=== PATIENT | female | born 1985 | race Caucasian/White ===

== ENCOUNTER 2019-02-05 12:36 | Inpatient (IN) | payer OTHER ==
[2019-02-05] MEDS ORDERED: BUTORPHANOL 2 MG INJ IV (14:30)
[2019-02-05] MEDS ORDERED: MISOPROSTOL 200 MCG TAB PR ×2 (14:30→22:30)
[2019-02-05] MEDS ORDERED: LIDOCAINE 1% (MPF) 30 ML INJ INJ (14:30)
[2019-02-05] MEDS ORDERED: CARBOPROST 250 MCG INJ IM ×2 (14:30→22:30)
[2019-02-05] MEDS ORDERED: OXYTOCIN 30 UNITS/LR 500 ML IV ×2 (14:30→22:30)
[2019-02-05] MEDS: LACTATED RINGER'S 1,000 ML IV ×5 (14:34→19:30)
[2019-02-05 14:51] LABS: ADD MAN DIFF? NO
[2019-02-05 14:55] LABS: BASOPHILS % 0.3 % (0.0-2.0); EOSINOPHILS % 0.2 % (0.0-7.0); HEMATOCRIT 37.9 % (37.0-47.0); HEMOGLOBIN 12.7 g/dl (12.0-16.0); LYMPHOCYTES # 1.3 10^3/ul (0.8-2.9); LYMPHOCYTES % 14.9 % (15.0-51.0); MEAN CORPUSCULAR HEMOGLOBIN 29.7 pg (29.0-33.0); MEAN CORPUSCULAR HGB CONC 33.5 g/dl (32.0-37.0); MEAN CORPUSCULAR VOLUME 88.8 fl (82.0-101.0); MEAN PLATELET VOLUME 10.7 fl (7.4-10.4); MONOCYTE # 0.4 10^3/ul (0.3-0.9); NEUTROPHIL # 6.9 10^3/ul (1.6-7.5); PLATELET COUNT 199 10^3/UL (140-415); RED BLOOD COUNT 4.27 10^6/ul (4.20-5.40); RED CELL DISTRIBUTION WIDTH 13.4 % (11.5-14.5)
[2019-02-05 14:55] LABS: WHITE BLOOD COUNT 8.8 10^3/ul (4.8-10.8)
[2019-02-05 15:15] LABS: INR 0.87; PROTIME 11.9 Sec (11.9-14.9); PT RATIO 0.9
[2019-02-05 15:16] LABS: PARTIAL THROMBOPLASTIN TIME 29.7 Sec (23.0-35.0)
[2019-02-05 15:52] LABS: RAPID PLASMA REAGIN NONREACTIVE (NR)
[2019-02-05 16:18] LABS: HEPATITIS B SURFACE ANTIGEN NEGATIVE (NEGATIVE)
[2019-02-05] MEDS: OXYTOCIN 30 UNITS/LR 500 ML IV ×3 (16:47→22:14)
[2019-02-05] MEDS ORDERED: FENTAnyl 2MCG/ML-ROPIV 0.2% 100 ML (18:35)
[2019-02-05] MEDS ORDERED: FENTAnyl 2MCG/ML-ROPIV 0.2% 100 ML BAG EPI (19:00)
[2019-02-05] MEDS ORDERED: NALOXONE (0.4 MG/ML) INJ IV (19:00)
[2019-02-05] MEDS: METHYLERGONOVINE 0.2 MG INJ IM (21:25)
[2019-02-05] MEDS: LACTATED RINGER'S 1,000 ML IV* (22:17)
[2019-02-05] MEDS ORDERED: MAGNESIUM HYDROXIDE 30ML CUP PO (22:30)
[2019-02-05] MEDS ORDERED: ACETAMINOPHEN 325 MG TAB PO (22:30)
[2019-02-05] MEDS ORDERED: METHYLERGONOVINE 0.2 MG INJ IM (22:30)
[2019-02-05] MEDS ORDERED: ONDANSETRON 4 MG INJ IV (22:30)
[2019-02-06] MEDS: IBUPROFEN 600 MG TAB PO ×3 (00:39→19:48)
[2019-02-06] MEDS: BENZOCAINE 20% 56 ML SPRAY TOP (00:39)
[2019-02-06] MEDS: DIBUCAINE 1% 30 GM OINT TOP (00:40)
[2019-02-06] MEDS: OXYTOCIN 30 UNITS/LR 500 ML IV (01:57)
[2019-02-06] MEDS: LACTATED RINGER'S 1,000 ML IV* ×3 (06:17→22:17)
[2019-02-06 06:35] LABS: ADD MAN DIFF? NO
[2019-02-06 06:41] LABS: WHITE BLOOD COUNT 12.3 10^3/ul (4.8-10.8)
[2019-02-06 06:42] LABS: BASOPHILS % 0.2 % (0.0-2.0); EOSINOPHILS % 0.3 % (0.0-7.0); HEMATOCRIT 35.8 % (37.0-47.0); HEMOGLOBIN 12.2 g/dl (12.0-16.0); LYMPHOCYTES # 1.6 10^3/ul (0.8-2.9); LYMPHOCYTES % 13.3 % (15.0-51.0); MEAN CORPUSCULAR HEMOGLOBIN 30.3 pg (29.0-33.0); MEAN CORPUSCULAR HGB CONC 34.1 g/dl (32.0-37.0); MEAN CORPUSCULAR VOLUME 89.1 fl (82.0-101.0); MEAN PLATELET VOLUME 10.5 fl (7.4-10.4); MONOCYTES % 7.7 % (0.0-11.0); NEUTROPHIL # 9.6 10^3/ul (1.6-7.5); NEUTROPHILS % 78.1 % (39.0-77.0); PLATELET COUNT 189 10^3/UL (140-415); RED BLOOD COUNT 4.02 10^6/ul (4.20-5.40); RED CELL DISTRIBUTION WIDTH 13.5 % (11.5-14.5)
[2019-02-06] MEDS: OXYCODONE/ASPIRIN (4.88/325) TAB PO (10:21)
[2019-02-06] MEDS: ACETAMINOPHEN 325 MG TAB PO (23:44)
[2019-02-07] MEDS: IBUPROFEN 600 MG TAB PO ×3 (05:02→18:15)
[2019-02-07] MEDS: WITCH HAZEL/GLYCERIN PAD PR (09:32)
[2019-02-07] MEDS: LANOLIN HPA 1 PKT TOP (09:32)
[2019-02-07] MEDS: SENNA/DOCUSATE NA (8.6MG/50MG) TAB PO (09:32)
== END 2019-02-07 18:00 | disposition home or self-care (01) | DRG 807 ==
LOC: OBT 12:36 → L-D 12:36 → OBT 13:00 → L-D 13:00 → PP1 23:28
PROVIDERS: Specialist
PROC: 10E0XZZ Delivery of Products of Conception, External Approach (ICD-10-PCS; principal; 2019-02-05)
PROC: 3E033VJ Introduction of Other Hormone into Peripheral Vein, Percutaneous Approach (ICD-10-PCS; 2019-02-05)
DX: O48.0 Post-term pregnancy (principal); Z37.0 Single live birth; Z3A.40 40 weeks gestation of pregnancy; O69.81X0 Labor and delivery complicated by cord around neck, without compression, not applicable or unspecified
CPT/HCPCS: 62322; 76815; 85025; 85610; 85730; 86592; 86850; 86900; 86901; 87340